=== PATIENT | male | born 1975 | race Caucasian/White ===

== ENCOUNTER 2021-09-04 20:07 | Emergency (ER) | payer BC, SELFPAY ==
[2021-09-04 20:10] VITALS: BP 139/88; PULSE 102; RESP 16; TEMP 36.6; O2SAT 98; BMI 22.2
--- NOTE | 2021-09-04 21:06 | CT_ITS ---
EXAM: CT ANGIOGRAPHY CHEST WITHOUT AND WITH INTRAVENOUS CONTRAST CLINICAL INDICATION: Chest pain TECHNIQUE: Helically acquired angiography images were obtained of the chest without and with intravenous contrast. This CT exam was performed using one or more of the following dose reduction techniques: automated exposure control, adjustment of the mA and/or kV according to patient size, and/or use of iterative reconstruction technique. This report was created using [employer] report generation technology. MIP reconstructed images were created and reviewed. CONTRAST: IV 100mL Isovue-[id number] COMPARISON: None. FINDINGS: PULMONARY ARTERIES: Unremarkable. Normal in caliber. No evidence of pulmonary embolism. AORTA: Unremarkable. Normal in caliber. No evidence of dissection. GREAT VESSELS OF AORTIC ARCH: Unremarkable. Normal in caliber. No evidence of dissection. LUNGS AND PLEURAL SPACES: Unremarkable. No mass. No consolidation or edema. No pleural effusion or thickening. No pneumothorax. HEART: Unremarkable. Heart size is normal. No pericardial effusion. No signs of right heart strain, ratio of right ventricle to left ventricle measures less than 1. MEDIASTINUM: Unremarkable. No mediastinal or hilar adenopathy. Esophagus is unremarkable. No hiatal hernia. THYROID: Unremarkable. No thyroid lesions. BONES/JOINTS: Unremarkable. No suspicious lytic or blastic abnormality. CT/CTA Chest W/WO Contrast IMPRESSION: Negative CTA chest. Electronically Signed: Helio Waters MD at 22:07 EDT ,
[2021-09-04] MEDS: Morphine 4 MG/ML Syringe IV (21:19)
--- NOTE | 2021-09-04 21:21 | EDS_ITS ---
HPI History of Present Illness Chief Complaint: Other, Pain/Inj Informant: patient Onset/Context/Timing Onset: Days (4) Context: Gradual Onset Timing: Continuous Quality: Aching Location: Left axilla Worsened by: Movement Relieved by: Rest Narrative Narrative: Patient presents with pain in his left axilla that has been getting worse over the last 4 days. Patient describes the pain as aching. Patient states he thought he pulled a muscle in his left chest and noted some increase in the swelling in his left axillary area. Patient states his pain is worse with movement and better with rest. Patient admits to subjective fevers but denies any chills. Patient admits to some mild shortness of breath. Patient denies any nausea or vomiting. Patient denies any radiation of the pain. PFSH PFSH Medical History no medical history no medical history Home Medications oxycodone-acetaminophen 5 mg-325 mg tablet 1 tab PO Q6H PRN PRN pain 5 days #20 TABLETS 09/04/21 [Rx Last Taken Unknown] Allergy/AdvReac Type Severity Reaction Status Date / Time No Known Allergies Allergy Verified 09/04/21 20:13 Surgical History H/O knee surgery Surgical History no surgical history Social History Smoking Status: Current every day smoker tobacco type: cigarettes ROS ROS ED Constitutional Constitutional ED: Reports fever(s) and subjective; Denies chills Eyes Eyes: Denies blurry vision or change in vision ENT ENT ED: Denies rhinorrhea or sore throat Cardiovascular Cardiovascular: Reports chest pain; Denies palpitations Respiratory/Chest Respiratory/Chest: Reports dyspnea; Denies cough Gastrointestinal Gastrointestinal: Denies nausea or vomiting Genitourinary Genitourinary ED: Denies dysuria or hematuria Musculoskeletal Musculoskeletal: Denies back pain or neck pain Integumentary Denies abscess or rash Neurologic Neurologic: Denies headache(s) or weakness Allergic/Immunologic Allergic/Immunologic ED: Denies mouth swelling or urticaria EXAM Physical Exam Const Vital Signs: 09/04/21 20:10 09/04/21 20:19 Temperature 97.9 F Temperature Source Temporal Pulse Rate 102 H Respiratory Rate 16 Respiratory Effort Normal Respiratory Pattern Normal Blood Pressure 139/88 H Blood Pressure Mean 105 Pulse Ox 98 Oxygen Delivery Method Room Air Positive well nourished and well developed General Appearance ED: well developed and NAD HEENT Reports moist mucous membranes Neck supple and no JVD Chest Wall Chest Narrative: There is mild tenderness over the left upper chest and left axillary area. There is some mild edema over this area. There is no bony crepitance or step- off. Resp normal respiratory effort and clear to auscultation bilaterally Cardio regular rate, regular rhythm and no murmurs GI normal to inspection, nondistended, normoactive bowel sounds and non-tender Palpation: soft Extremity normal to inspection General Extremety ED: Negative for edema or tenderness General Extremity: Negative for edema Neuro oriented x3, CN's II-XII intact bilaterally and no sensory deficits noted Sensorium / Orientation: alert Motor Exam: strength 5/5 throughout Psych mental status grossly normal Skin no rashes or lesions noted MDM MDM MDM Narrative Medical decision making narrative: Patient was given a dose of morphine here. CBC shows a slight leukocytosis of 12.0. Comprehensive metabolic profile was obtained and was essentially within normal limits. PT with INR PTT were within normal limits. CTA of the chest was obtained. There is no pulmonary embolism or aortic dissection. There is a large soft tissue mass in the left axilla measuring 4.6 x 5.4 x 6.3 cm. This may represent a large inflamed lymph node. This may need to be biopsied for further evaluation. This was interpreted by the radiologist and reviewed by myself. Patient was advised of his findings. Patient was given a dose of [place] here and a prescription for [place]ie. Patient was instructed to follow-up with his primary care physician in 5 to 7 days for reevaluation. Patient understood and was agreeable with the plan. All questions were answered. Lab Data Attestation: I reviewed the patient's lab results. Labs: Laboratory Results - last 24 hr 09/04/21 09/04/21 09/04/21 21:10 21:10 21:10 WBC 12.0 H RBC 4.37 L Hgb 14.1 Hct 41.9 MCV 95.9 H MCH 32.3 H MCHC 33.7 RDW Std Deviation 43.8 RDW Coeff of Susana 12.3 Plt Count 318 MPV 8.7 Immature Gran % (Auto) 0.300 Neut % (Auto) 62.8 Lymph % (Auto) 21.4 Bertie % (Auto) 10.5 H Eos % (Auto) 4.1 Baso % (Auto) 0.9 Absolute Neuts (auto) 7.5 Absolute Lymphs (auto) 2.56 Nucleated RBC % 0 PT 13.2 INR 1.0 APTT 31.5 Sodium 140 Potassium 3.7 Chloride 110 H Carbon Dioxide 27.0 Anion Gap 3 L BUN 10 Creatinine 0.79 Estim Creat Clear Calc 114.95 Est GFR (MDRD) Af Amer 134 Est GFR (MDRD) Non-Af 111 BUN/Creatinine Ratio 12.6 Glucose 117 H Calcium 9.0 Total Bilirubin 0.40 AST 12 L ALT 14 L Alkaline Phosphatase 63 Total Protein 7.0 Albumin 3.3 Globulin 3.7 Albumin/Globulin Ratio 0.9 Radiography Diagnostic Testing: Clinical Impression(s) from Imaging Studies Chest CTA 09/04/21 21:06 IMPRESSION: Negative CTA chest. Electronically Signed: Helio Waters MD at 22:07 EDT , ADDENDUM: 09/04/210 IMPRESSION: undefined Discharge Plan Triage Chief Complaint: Other, Pain/Inj ED Provider: Pk Gracia Dx/Rx/DC Orders Clinical Impression: Axillary lymphadenopathy Instructions: Lymphadenopathy Prescriptions: New oxycodone-acetaminophen [oxycodone-acetaminophen] 5-325 mg tablet 1 tab PO Q6H PRN PRN (Reason: pain) 5 Days Qty: 20 0RF Primary Care Provider: NOT,DEFINED Referrals: NOT,DEFINED [Primary Care Provider] - 5-7 Days Disposition Disposition: Home, Self Care
[2021-09-04 21:27] LABS: Absolute Lymphocyte Count 2.56 X10^3/uL (0.83-4.51); Absolute Neutrophil Count 7.5 X10^3/uL (2.0-7.7); Basophil# 0.11 X10^3/uL; Basophil% 0.9 % (0-1); Eosinophil# 0.49 X10^3/uL; Eosinophils% 4.1 % (0-5); Hematocrit 41.9 % (40-54); Hemoglobin 14.1 g/dL (13.0-16.5); Lymphocyte # 2.56 X10^3/ul (0.83-4.51); Lymphocyte % 21.4 % (19-41); Mean Corp Hgb Conc 33.7 g/dL (32-36); Mean Corpuscular Hgb 32.3 pg (27.0-32.0); Mean Corpuscular Volume 95.9 fL (80-94); Mean Platelet Vol. 8.7 fl (6.2-12.0); Monocyte# 1.25 X10^3/uL; Monocyte% 10.5 % (0-10); NRBC Flagged by Analyzer 0 % (0-5); Neutrophil % 62.8 % (47-70); Platelet Count 318 K/mm3 (150-450); RBC Distribution Width CV 12.3 % (11.6-14.6); RBC Distribution Width SD 43.8 fl (35.1-43.9); Red Blood Count 4.37 M/mm3 (4.6-6.2)
[2021-09-04 21:38] LABS: Prothrombin Time (Protime)PT. 13.2 SECONDS (11.7-14.9)
[2021-09-04 21:39] LABS: Partial Thromboplast Time 31.5 Seconds (24.1-36.2)
[2021-09-04 21:45] LABS: ALB/GLOB Ratio 0.9 RATIO (0.9-2.4); AST(SGOT) 12 U/L (15-37); Alanine Aminotransfer ALT/SGPT 14 U/L (16-61); Albumin, Serum 3.3 g/dL (3.2-5.0); Alkaline Phosphatase 63 U/L (45-117); Anion Gap 3 (5-15); BUN 10 mg/dL (7-18); BUN/Creat Ratio 12.6 RATIO (10-20); Chloride 110 mmol/L (98-107); Creatinine, Serum 0.79 mg/dL (0.70-1.30); EST Glomerular Filtration Rate 111 mL/min (>60); Est Glom Filt Rate - Afr Amer 134 mL/min (>60); Estimated Creatinine Clearance 114.95 ml/min; Globulin 3.7 g/dL (2.2-4.2); Glucose 117 mg/dL (74-106); Potassium 3.7 mmol/L (3.5-5.1); Sodium Level 140 mmol/L (136-145)
[2021-09-04] MEDS: oxyCODONE 5 MG Tablet PO (23:21)
== END 2021-09-04 23:24 | disposition home or self-care (01) ==
PROVIDERS: Emergency Provider Emergency Medicine; Visit Provider Emergency Medicine
DX: R59.0 Localized enlarged lymph nodes (principal); R06.02 Shortness of breath; F17.210 Nicotine dependence, cigarettes, uncomplicated
CPT/HCPCS: 71275; 80053; 85025; 85610; 85730; 96374; 99284; Q9967; A4216